=== PATIENT | male | born 1975 | race Caucasian/White ===

== ENCOUNTER 2018-09-30 07:17 | Emergency (ER) | payer OTHER ==
--- NOTE | 2018-09-30 07:25 | ED.PDOC ---
History of Present Illness - General Stated Complaint: CRUSH INJURY LEFT HAND Time Seen by Provider: 09/30/18 07:20 Source: patient, RN notes reviewed Additional Information: 43 YEAR OLD HERE AFTER INJURY TO THE LEFT INDEX MIDDLE AND RING FINGER SUSTAINED A CRUSH TYPE OF INJURY WHEN HELPING A FRIEND WITH HIS JOB NO OTHER INJURY HE HAS A STUTTER THEREFORE CANT EXPLAIN WELL HE IS NOT UTD WITH TETANUS - History of Present Illness Occurred: just prior to arrival Pain - Upper Extremity: moderate: Hand, left Method of Injury: direct blow Improving Factors: nothing Worsening Factors: nothing Allergies/Adverse Reactions: Allergies NO KNOWN ALLERGY Allergy (Verified 09/30/18 07:23) Home Medications: Ambulatory Orders Acetamin W/Cod #3 Tab [Tylenol w/CODEINE #3] 1 ea PO Q6HR PRN #40 tab 09/30/18 Cephalexin Monohydrate [Keflex] 500 mg PO Q8HR 10 Days #30 cap 09/30/18 Review of Systems - Review of Systems Constitutional: States: no symptoms reported EENTM: States: no symptoms reported Respiratory: States: no symptoms reported Cardiology: States: no symptoms reported Gastrointestinal/Abdominal: States: no symptoms reported Genitourinary: States: no symptoms reported Musculoskeletal: States: no symptoms reported Skin: States: no symptoms reported Neurological: States: no symptoms reported Endocrine: States: no symptoms reported Hematologic/Lymphatic: States: no symptoms reported Family Medical History - Family History Mother Family History: No Known Physical Exam - Physical Exam General Appearance: Alert, Comfortable Eyes, Ears, Nose, Throat Exam: PERRL/EOMI, normal ENT inspection, TMs normal, pharynx normal Neck: non-tender, full range of motion, supple Cardiovascular/Respiratory: regular rate, rhythm, no M/R/G, normal peripheral pulses Abdominal Exam: non-tender, no organomegaly Shoulder Exam: normal inspection, non-tender, no evidence of injury Elbow/Forearm Exam: normal inspection, non-tender, no evidence of injury, normal ROM Wrist Exam: normal inspection, non-tender, no evidence of injury, normal ROM Hand Exam: nail injury, soft tissue tenderness - RIGHT HAND NORMAL LEFT HAND CRUSH INJURY LEFT2 3 4 FINGERS TENDER TO PALPATE THE TERMINAL PHALANX MIDDLE FINGER HAS A LACERATION ON THE ULNAR BORDER WITH ACTIVE BLEEDING NO SUB UNGUAL HEMATOMA SEEN Progress - Results/Orders Results/Orders: LEFT MIDDLE FINGER EXAMINED AFTER LIDOCAINE DIGITAL BLOCK NO SUBUNGUAL HEMATOMA LACERATION 1 CM ON THE LEFT MIDDLE FINGER ON THE ULNAR BORDER NOTED DID NOT SEE THE NEED TO TAKE THE NAIL OUT I DID NOT SUSPECT A NAIL BED INJURY AT THIS TIME EVEN IF IT IS IT IS MOST LIKELY VERY MINOR THE PATIENT WAS GIVEN 1 GM OG ANCEF IV TETANUS STATUS UPDATED HE WILL BE SEND HOME WITH ANTIBIOTICS AND ANALGESICS HIS FINGERS WILL BE SPLINTED AND FOLLOW UP WITH DR HERCULES ORTHO - EKG/XRAY/CT XRAY: FINGERS Xray Comments: TRANSVERSE FRACTURE OF THE BASE OF THE INDEX MIDDLE AND RING FINGER NOTED Procedures - Laceration/Wound Repair Left Medial Finger Wound's Depth, Shape: superficial, linear, nail-avulsed Wound Explored: clean Irrigated w/ Saline (cc's): 50 Anesthesia: 1% Lidocaine Volume Anesthetic (cc's): 10 Wound Debrided: minimal Suture Size/Type: 4:0, fast absorbing gut Number of Sutures: 1 Sterile Dressing Applied?: Yes Splint Applied?: Yes Departure - Departure Clinical Impression: Fracture phalanges, hand Time of Disposition: 09:02 Disposition: Discharge to Home or Self Care Condition: Good Diet: resume usual diet Referrals: Sterling Hercules MD [Active Staff] - 1-2 Weeks Home Medications: Ambulatory Orders Acetamin W/Cod #3 Tab [Tylenol w/CODEINE #3] 1 ea PO Q6HR PRN #40 tab 09/30/18 Cephalexin Monohydrate [Keflex] 500 mg PO Q8HR 10 Days #30 cap 09/30/18
[2018-09-30] MEDS ORDERED: TETANUS,DIPHTHERIA,PERTUSSIS 1 EA SYG IM ONE (07:28)
[2018-09-30] MEDS ORDERED: HYDROcodone 10MG/APAP 325MG 1 EA TAB ONE (07:37)
[2018-09-30] MEDS ORDERED: HYDROcodone 10MG/APAP 325MG 1 EA TAB PO ONE (07:39)
[2018-09-30 08:06] VITALS: TEMP 97.9
[2018-09-30] MEDS ORDERED: LIDOCAINE 1% 10 ML VIAL INJ ONE (08:18)
--- NOTE | 2018-09-30 08:25 | RAD ---
EXAM DESCRIPTION: Hand,Left 3 Views CLINICAL HISTORY: smashed fingers of left hand COMPARISON: None. IMPRESSION: 3 views of the left hand show diffuse osteopenia the osseous structures. Transverse mildly displaced fractures involving the base of the distal phalanx of the third and fourth digits is seen. Mild soft fracture of the ulnar aspect of the distal phalanx of the third finger is seen. Question nondisplaced transverse fracture at the base of the second finger distal phalanx is seen. The fingers are not well seen on lateral projection because of overlapping densities. Mild flexion of the fifth digit at the PIP joint is seen. No obvious extension to the articular surfaces is seen.. Diffuse soft tissue swelling of the fingers are noted. Electronically signed by: Davis Ackerman MD 09/30/2018 8:24 AM [facility]
[2018-09-30] MEDS ORDERED: CHLORHEXIDINE GLUCONATE 4 % 15 ML UD TOP ONE (08:26)
[2018-09-30] MEDS ORDERED: ceFAZolin SODIUM 1 GM in SODIUM CHL 0.9% 50ML MIN-BAG+ 50 ML IVPB ONE (08:29)
[2018-09-30] MEDS ORDERED: ceFAZolin SODIUM 1 GM VIAL ONE (08:31)
[2018-09-30] MEDS ORDERED: SODIUM CHL 0.9% 50ML MIN-BAG+ 50 ML IVPB ONE (08:31)
--- NOTE | 2018-09-30 08:43 | RAD ---
EXAM DESCRIPTION: Fingers,Left CLINICAL HISTORY: crush injury COMPARISON: Hand x-rays same day IMPRESSION: 3 lateral views of the left neck and through fourth fingers shows transversely oriented fractures involving the proximal aspect of the distal phalange ease of the second, third, and fourth fingers. There is mild palmar displacement of the distal fracture fragment of the finger on image 3 which may be the third finger although this is difficult to determine with only lateral views. Mild soft tissue emphysema associated with one of the fingers in the region of the distal phalanx disease is seen suggesting open fracture. Electronically signed by: Davis Ackerman MD 09/30/2018 8:42 AM [facility]
[2018-09-30 09:41] VITALS: BP 125/79; O2SAT 100
[2018-09-30] MEDS ORDERED: ALPRAZolam 0.25 MG TAB ONE (22:39)
== END 2018-09-30 09:48 | disposition home or self-care (01) ==
LOC: ER 07:17
DX: S62.613B Displaced fracture of proximal phalanx of left middle finger, initial encounter for open fracture (principal); S62.615A Displaced fracture of proximal phalanx of left ring finger, initial encounter for closed fracture; S67.193A Crushing injury of left middle finger, initial encounter; S67.195A Crushing injury of left ring finger, initial encounter; Z23 Encounter for immunization; X58.XXXA Exposure to other specified factors, initial encounter; Y93.89 Activity, other specified; Y92.89 Other specified places as the place of occurrence of the external cause
CPT/HCPCS: 73130; 73140; 90471; 90715; J0690; J7050

== ENCOUNTER → 2018-10-02 | Outpatient (CLI) | payer OTHER ==
--- NOTE | 2018-10-03 08:12 | RAD ---
EXAM DESCRIPTION: Hand,Left 3 Views CLINICAL HISTORY: PAIN IN LEFT HAND COMPARISON: September 30, 2018 IMPRESSION: 3 views of left hand demonstrate transversely oriented fractures through the base of the second, third, and fourth distal phalanges. There is approximately 2 mm separation of the major fracture fragments of the third finger distal phalanx with associated tuft fracture similar to previous exam. Question tuft fracture involving the radial and ulnar aspect of the distal phalanx of the fourth digit. Diffuse soft tissue swelling of the fingers is seen. No new fracture or dislocation is identified. Electronically signed by: Davis Ackerman MD 10/03/2018 8:11 AM [facility]
== END ==
LOC: RAD 08:35
PROVIDERS: ATTEND Orthopaedic Surgery
DX: S62.633A Displaced fracture of distal phalanx of left middle finger, initial encounter for closed fracture (principal); S62.635A Displaced fracture of distal phalanx of left ring finger, initial encounter for closed fracture; S62.637A Displaced fracture of distal phalanx of left little finger, initial encounter for closed fracture

== ENCOUNTER → 2018-10-09 | Outpatient (CLI) | payer OTHER ==
--- NOTE | 2018-10-09 10:06 | RAD ---
EXAM DESCRIPTION: Hand,Left 3 Views CLINICAL HISTORY: HAND PAIN COMPARISON: None Available. TECHNIQUE: AP, LATERAL, AND OBLIQUE FINDINGS: Three-view left hand shows transversely oriented fractures of the proximal second third and fourth distal phalanges with small fracture fragments along the lateral aspects of the paula. No change in alignment since previous study. Appearance is stable since films one week ago. Mild narrowing of the joints of the fingers. Fractured distal phalanges of second through fourth digits. IMPRESSION: Fractured distal phalanges of second through fourth digits unchanged in alignment compared to previous study. Electronically signed by: Dandre Chou MD 10/09/2018 10:05 AM [facility]
== END ==
LOC: RAD 08:06
PROVIDERS: ATTEND Orthopaedic Surgery
DX: S62.631D Displaced fracture of distal phalanx of left index finger, subsequent encounter for fracture with routine healing (principal); S62.633D Displaced fracture of distal phalanx of left middle finger, subsequent encounter for fracture with routine healing; S62.635D Displaced fracture of distal phalanx of left ring finger, subsequent encounter for fracture with routine healing; S62.637D Displaced fracture of distal phalanx of left little finger, subsequent encounter for fracture with routine healing

== ENCOUNTER → 2018-10-23 | Outpatient (CLI) | payer OTHER ==
--- NOTE | 2018-10-23 09:54 | RAD ---
EXAM DESCRIPTION: Hand,Left 3 Views CLINICAL HISTORY: CLOSED FRACTURE OF PHALANGES , INDEX , MIDDLE ,RING OF LEFT HAND COMPARISON: 09 October 2018 TECHNIQUE: 3 views left FINDINGS: A nondisplaced transverse fracture of the base of the distal phalanx of the second digit is observed. Similar fractures are also observed in the third and fourth digits. No intra-articular extent is observed. Exam reveals some fracturing of the distal tuft of the third and fourth digits. No significant callus formation is detected. IMPRESSION: 1. Nondisplaced fracturing of the base of the distal phalanx of the second third and fourth digits is observed. Minimal fracturing of the distal paula of the third and fourth digits is also noted. No significant interval changes observed in the prior exam. Electronically signed by: Carson Harrison MD 10/23/2018 9:53 AM [facility]
== END ==
LOC: RAD 07:47
PROVIDERS: ATTEND Orthopaedic Surgery
DX: S62.661D Nondisplaced fracture of distal phalanx of left index finger, subsequent encounter for fracture with routine healing (principal); S62.663D Nondisplaced fracture of distal phalanx of left middle finger, subsequent encounter for fracture with routine healing; S62.665D Nondisplaced fracture of distal phalanx of left ring finger, subsequent encounter for fracture with routine healing

== ENCOUNTER → 2018-11-17 | Outpatient (CLI) | payer OTHER ==
--- NOTE | 2018-11-17 08:21 | RAD ---
EXAM DESCRIPTION: Hand,Left 3 Views CLINICAL HISTORY: CLOSED FRACTURE OF ONE OR MORE PHALANGES OF HAND LEFT COMPARISON: None Available. TECHNIQUE: AP, LATERAL, AND OBLIQUE FINDINGS: Three-view left hand x-ray series reveals transversely oriented fractures through the bases of the distal phalanges of second third and fourth digits of the left hand which show subtle evidence of healing compared to the previous study. The fracture lines are less distinct. Irregularities of the paula of the same digits are noted consistent with fractures without change. On the lateral view, the degree of displacement of the distal fragments appear stable. No change in alignment. There is no underlying lytic bone lesion. No change in alignment. There are no significant arthritic changes. There is no radiopaque foreign body. IMPRESSION: Distal phalangeal fractures of the second through fourth digits of the left hand unchanged in alignment. Electronically signed by: Dandre Chou MD 11/17/2018 8:20 AM [facility]
== END ==
LOC: RAD 07:38
PROVIDERS: ATTEND Orthopaedic Surgery
DX: S62.661D Nondisplaced fracture of distal phalanx of left index finger, subsequent encounter for fracture with routine healing (principal); S62.663D Nondisplaced fracture of distal phalanx of left middle finger, subsequent encounter for fracture with routine healing; S62.665D Nondisplaced fracture of distal phalanx of left ring finger, subsequent encounter for fracture with routine healing

== ENCOUNTER → 2018-12-18 | Outpatient (CLI) | payer OTHER ==
--- NOTE | 2018-12-18 08:27 | RAD ---
EXAM DESCRIPTION: Hand,Left 3 Views CLINICAL HISTORY: NONDISP FX OF DIST PHALANX OF L IDX FNGR, 7THD COMPARISON: Previous study November 17, 2018 TECHNIQUE: AP, LATERAL, AND OBLIQUE FINDINGS: Three-view tab hand shows fracture distal phalanges of the second through fourth digits of the left hand with fracture lines slightly less distinct consistent with continued healing. Tiny ossific density along the ulnar aspect of distal phalanx of the middle digit. Lateral view shows degree of displacement unchanged. There is no underlying bone lesion. There are no significant arthritic changes. There is no radiopaque foreign body. IMPRESSION: Fractured distal phalanges of second through fourth digits of the left hand. Electronically signed by: Dandre Chou MD 12/18/2018 8:24 AM [facility]
== END ==
LOC: RAD 08:06
PROVIDERS: ATTEND Orthopaedic Surgery
DX: S62.661D Nondisplaced fracture of distal phalanx of left index finger, subsequent encounter for fracture with routine healing (principal); S62.663D Nondisplaced fracture of distal phalanx of left middle finger, subsequent encounter for fracture with routine healing; S62.665D Nondisplaced fracture of distal phalanx of left ring finger, subsequent encounter for fracture with routine healing

== ENCOUNTER → 2019-02-16 | Outpatient (CLI) | payer OTHER ==
--- NOTE | 2019-02-16 09:37 | RAD ---
EXAM DESCRIPTION: Hand,Left 3 Views CLINICAL HISTORY: S62.661D, S62.663D, S62.665D COMPARISON: None Available. TECHNIQUE: Radiographs of the left hand dated 12/18/2018. radiographs of the left hand were obtained. FINDINGS: The visualized bones appear well mineralized. Some interval healing is identified in the fractures of the distal phalanges of the second through fourth digits.. Mild soft tissue swelling is identified. IMPRESSION: Some interval healing is identified in the fractures of the distal phalanges of the second through fourth digits.. Electronically signed by: Jaja Casas MD 02/16/2019 9:34 AM CDT
== END ==
LOC: RAD 09:04
PROVIDERS: ATTEND Orthopaedic Surgery
DX: S62.661D Nondisplaced fracture of distal phalanx of left index finger, subsequent encounter for fracture with routine healing (principal); S62.663D Nondisplaced fracture of distal phalanx of left middle finger, subsequent encounter for fracture with routine healing; S62.665D Nondisplaced fracture of distal phalanx of left ring finger, subsequent encounter for fracture with routine healing